=== PATIENT | male | born 1965 | race Caucasian/White ===

== ENCOUNTER 2019-08-05 19:20 | Emergency (ER) | payer OTHER ==
[~2019-08-05] VITALS: Ht 162.6 cm; Wt 74.8 kg
--- NOTE | 2019-08-05 20:32 | NUR ---
ADMITTING REP CALLED REGARDING PT. PT WAS REASSESSED DUE TO PT C/O SOB. PT REASSESSED BREATH SOUND MINIMAL WHEEZING HEARD BILATERALLY, O2 SAT 98% ON RA. NO ACUTE DISTRESS NOTED. PT SENT BACK TO WAITING ROOM FOR ROOM AVAILABILITY.
--- NOTE | 2019-08-05 21:33 | NUR ---
PT BIBS. C/O "HAVE MOSQUITO BITES" -SOB AOX4. VSS. AMBULATORY
[2019-08-05] MEDS ORDERED: ALBUTEROL FS 2.5 MG/3 ML VIAL.NEB ONE (22:30)
[2019-08-05] MEDS ORDERED: IPRATROPIUM NEB FS 0.5 MG/2.5 ML AMPUL.NEB ONE (22:30)
[2019-08-05] MEDS ORDERED: ALBUTEROL FS 2.5 MG/3 ML VIAL.NEB NEB ONE (22:30)
[2019-08-05] MEDS ORDERED: IPRATROPIUM NEB FS 0.5 MG/2.5 ML AMPUL.NEB NEB ONE (22:30)
[2019-08-05] MEDS ORDERED: HYDROCORTISONE 1% CREAM 28.35 GM TUBE TP ONE (23:35)
[2019-08-06 00:09] VITALS: BP 117/67
== END 2019-08-06 00:10 | disposition home or self-care (01) ==
LOC: ER 19:24
DX: S80.862A Insect bite (nonvenomous), left lower leg, initial encounter (principal); S80.861A Insect bite (nonvenomous), right lower leg, initial encounter; J20.9 Acute bronchitis, unspecified; W57.XXXA Bitten or stung by nonvenomous insect and other nonvenomous arthropods, initial encounter; Y93.89 Activity, other specified; Y92.89 Other specified places as the place of occurrence of the external cause; Y99.8 Other external cause status
CPT/HCPCS: 71045-TC